=== PATIENT | female | born 1950 | race Caucasian/White ===

== ENCOUNTER 2019-09-11 12:53 | Emergency (ER) | payer MEDICARE ==
[2019-09-11] MEDS ORDERED: Fentanyl 100 MCG/2 ML VIAL ONE (13:36)
--- NOTE | 2019-09-11 13:50 | RAD ---
EXAM: AP pelvis INDICATIONS: Injury COMPARISON: None. FINDINGS: There are displaced fracture of the left superior ramus at the pubis. Associated fracture o f the left inferior pubic ramus. Left femoral head and neck appear intact. Right hemipelvis appears intact. IMPRESSION: Fractures left pelvis. Fractures of inferior and superior rami. Suggest CT for further ev aluation.
--- NOTE | 2019-09-11 15:01 | CT ---
CT pelvis noncontrast: DATE: 09/11/2019 HISTORY: 68-year-old female with acute traumatic injury to pelvis with left-sided pain. FINDINGS: Acute fracture of left superior ramus with mild displacement. Acute fracture of left inferior ramus w ith minimal displacement. Asymmetrical mild thickening of left obturator internus muscle. Diffuse osteopenia. No dislocation of hips. No other fracture identified. No free fluid within the pelvic cav ity. Infrarenal abdominal aortic aneurysm, incompletely imaged. IMPRESSION: 1. Acute, minimally/mildly displaced fracture of left superior ramus. 2. Acute, minimally displaced fracture of left inferior ramus. 3. Mild intramuscular hematoma of left obturator internus muscle.
--- NOTE | 2019-09-11 15:10 | CT ---
CT left femur noncontrast: DATE: 09/11/2019 HISTORY: 68-year-old female with acute traumatic left thigh pain due to fall. FINDINGS: No joint effusion at the knee. No evidence of fracture of the femur. Small subcapital osteophytes. Fe moral head contour is maintained. No dislocation. Mildly angulated minimally/mildly displaced fracture of left superior ramus. Minimally displaced fracture of left inferior ramus. IMPRESSION: 1. No acute fracture of femur identified. 2. Minimally displaced acute fracture of left inferior ramus. 3. Minimally/mildly displaced and mildly angulated fracture of left superior ramus.
[2019-09-11] MEDS ORDERED: Morphine 10 MG/ML VIAL ONE (15:11)
[2019-09-11] MEDS ORDERED: HYDROcodone/Acetaminophen 10/325 mg Tablet ONE (17:10)
== END 2019-09-11 18:54 | disposition short-term general hospital (02) ==
LOC: MADERS 12:53
DX: S32.592A Other specified fracture of left pubis, initial encounter for closed fracture (principal); I25.2 Old myocardial infarction; E03.9 Hypothyroidism, unspecified; K21.9 Gastro-esophageal reflux disease without esophagitis; E78.5 Hyperlipidemia, unspecified; E78.00 Pure hypercholesterolemia, unspecified; F32.9 Major depressive disorder, single episode, unspecified; G47.00 Insomnia, unspecified; F17.210 Nicotine dependence, cigarettes, uncomplicated; Z95.5 Presence of coronary angioplasty implant and graft; Z79.899 Other long term (current) drug therapy; Z79.01 Long term (current) use of anticoagulants; Z79.82 Long term (current) use of aspirin; Z79.891 Long term (current) use of opiate analgesic; W18.30XA Fall on same level, unspecified, initial encounter
CPT/HCPCS: 72170; 72192; 96372; J2270; J3010

== ENCOUNTER 2021-10-04 07:43 | Emergency (ER) | payer MEDICARE ==
[2021-10-04] MEDS ORDERED: Sodium Chloride 0.9% 250 ML 250 ML ONE (09:32)
[2021-10-04] MEDS ORDERED: Sodium Chloride 0.9% 100 ML ONE (09:32)
[2021-10-04] MEDS ORDERED: Azithromycin 500 MG VIAL ONE (09:32)
[2021-10-04] MEDS ORDERED: cefTRIAXone\\ROCEPHIN 2 GM VIAL ONE (09:32)
[2021-10-04 09:49] LABS: ALT (SGPT) 20 U/L (8-55); AST (SGOT) 29 U/L (5-34); Albumin 3.4 g/dL (3.4-4.8); Alkaline Phosphatase 56 U/L (40-110); Anion Gap 17 mmol/L (10-20); BUN (Urea Nitrogen) 16 mg/dL (9.8-20.1); Bilirubin, Total 0.4 mg/dL (0.2-1.2); Calc. Creatinine Clearance 0 mL/min (70-130); Calcium 8.9 mg/dL (7.8-10.44); Carbon Dioxide 25 mmol/L (23-31); Chloride 103 mmol/L (98-107); Globulin 3.5 g/dL (2.4-3.5); Glucose 128 mg/dL (83-110); Magnesium 2.3 mg/dL (1.6-2.6); Potassium 3.6 mmol/L (3.5-5.1); Protein, Total 6.9 g/dL (5.8-8.1); Sodium 141 mmol/L (136-145)
[2021-10-04 10:03] LABS: Hemoglobin 10.4 g/dL (12.0-16.0); Mean Corpuscular HGB CONC 30.7 g/dL (32.0-36.0); Mean Corpuscular Hemoglobin 30.9 pg (27.0-31.0); Mean Corpuscular Volume 100.5 fL (78.0-98.0); Mean Platelet Volume 6.6 fL (7.4-10.4); Platelet Count 335 thou/uL (130-400); RBC Distribution Width 14.1 % (11.5-14.5); Red Blood Cell (RBC) Count 3.37 mill/uL (4.20-5.40); White Blood Cell (WBC) Count 6.2 thou/uL (4.8-10.8)
[2021-10-04 10:04] LABS: Anisocytosis SLIGHT = 6-15 cells (100X) (0-5/hpf); Band 10 % (5-11); Lymphocytes 14 % (21-51); MDiff Complete? YES; Manual Diff?? YES; Monocytes 13 % (0-10); Neutrophil 63 % (42-75); Platelet Morphology Comment Appears Adequate
[2021-10-04 10:12] LABS: CKMB 1.3 ng/mL (0-6.6)
[2021-10-04] MEDS ORDERED: Clopidogrel Bisulfate 75 MG TAB ONE (10:34)
== END 2021-10-04 11:00 | disposition short-term general hospital (02) ==
LOC: MADERS 07:43
DX: J44.0 Chronic obstructive pulmonary disease with (acute) lower respiratory infection (principal); J18.9 Pneumonia, unspecified organism; J44.1 Chronic obstructive pulmonary disease with (acute) exacerbation; I25.2 Old myocardial infarction; E03.9 Hypothyroidism, unspecified; K21.9 Gastro-esophageal reflux disease without esophagitis; E78.5 Hyperlipidemia, unspecified; E78.00 Pure hypercholesterolemia, unspecified; F17.210 Nicotine dependence, cigarettes, uncomplicated
CPT/HCPCS: 71045; 80053; 82553; 83605; 83735; 83880; 84484; 85025; 87040; 93005; 94760; 96365; 96367; J0456; J0696; J3490; J7050